=== PATIENT | female | born 1945 | race African-American/Black ===

== ENCOUNTER 2018-07-31 13:56 | Outpatient (CLI) | payer MEDICARE, MEDICAID | END 2018-07-31 13:57 | disposition home or self-care (01) | LOC: BICMAMMO 13:56 | PROVIDERS: ATTEND Family Medicine | DX: Z12.31 Encounter for screening mammogram for malignant neoplasm of breast (principal) | CPT/HCPCS: 77063; 77067 ==

== ENCOUNTER 2019-06-28 15:59 | Emergency (ER) | payer MEDICARE, MEDICAID ==
--- NOTE | 2019-06-28 17:06 | CT ---
CT OF BRAIN PERFORMED WITHOUT CONTRAST ENHANCEMENT: 06/28/19 HISTORY: Fall with head injury. COMPARISON: 10/29/04 study. There is generalized ventricular and sulcal prominence. There is no signs of intracerebral hemorrhage or extra-axial fluid collections. Mastoid air cells are clear. There is some thickening and ground g lass type opacity to the maxillary sinus region. 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 IMPRESSION: No acute intracranial abnormalities. POS: H
--- NOTE | 2019-06-28 17:11 | CT ---
CT Cervical Spine WO Con Indication: Fall one hour prior to arrival with neck pain COMPARISON: None. FINDINGS: Acute fracture/subluxation: None. Spinal alignment: There is some straightening of the normal cervical lordosis which may be positional or related to muscular spasm. Craniocervical junction: Within normal limits. Vertebral body heights: Maintained. Cervical spine degenerative change: There is mild disc degenerative disease at C6-7. There is mild mu ltilevel facet osteoarthritic change. Lung apices: Mild emphysema IMPRESSION: No acute osseous abnormality.
--- NOTE | 2019-06-28 17:15 | CT ---
CT OF FACIAL BONES PERFORMED WITHOUT CONTRAST ENHANCEMENT: 06/28/19 HISTORY: Patient fell and has facial injury. The bones show an overall ground glass opacity. 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 Nasal bone and zygomatic arches are intact. There is no air fluid levels present within the sinuses. The pterygoid processes are intact. No maxillary or orbital fractures are seen. There is motion artifact in the region of the mandible. This makes the mandible difficult to assess, particularly anteriorly. I do not see any definite signs of fracture. There is some undulation to the cortex of the right condyle; however, in reviewing the cervical spine images, there is no abnormalit y seen in this region and I believe it is all related to motion. IMPRESSION: No evidence of facial bone fracture. POS: [facility]
== END 2019-06-28 18:09 | disposition home or self-care (01) ==
LOC: ERS 15:59
DX: S00.83XA Contusion of other part of head, initial encounter (principal); G20 Parkinson's disease; F32.9 Major depressive disorder, single episode, unspecified; J45.909 Unspecified asthma, uncomplicated; I10 Essential (primary) hypertension; M19.90 Unspecified osteoarthritis, unspecified site; M06.9 Rheumatoid arthritis, unspecified; D50.9 Iron deficiency anemia, unspecified; W01.198A Fall on same level from slipping, tripping and stumbling with subsequent striking against other object, initial encounter
CPT/HCPCS: 36415; 70450; 70486; 72125; 84443

== ENCOUNTER 2019-08-13 12:10 | Outpatient (CLI) | payer MEDICARE, MEDICAID ==
--- NOTE | 2019-08-13 13:01 | RAD ---
EXAM: Esophagram HISTORY: Hiatal hernia, gastroesophageal reflux disease, cough, and weight loss COMPARISON: None FINDINGS: A double contrast barium swallow/esophagram was performed. Esophageal motility is delayed consistent with presbyesophagus. No mucosal lesions are seen in the esophagus. No extrinsic compression on the esophagus is seen. No hiatal hernia. Moderate contents are seen within the stomach secondary to recent oral intake. No gastroesophageal reflux. A 13 mm barium tablet was attempted to be administered, but the patient held the tablet in her mouth for prolonged period of time and eventually chewed the tablet. IMPRESSION: No significant abnormality other than presbyesophagus.
== END 2019-08-13 12:11 | disposition home or self-care (01) ==
LOC: RAD 12:10
PROVIDERS: ATTEND Physician Assistant Medical
DX: K44.9 Diaphragmatic hernia without obstruction or gangrene (principal); K21.9 Gastro-esophageal reflux disease without esophagitis; R05 Cough; R63.4 Abnormal weight loss; K22.8 Other specified diseases of esophagus
CPT/HCPCS: 74220

== ENCOUNTER 2019-08-20 10:43 | Outpatient (CLI) | payer MEDICARE, MEDICAID ==
--- NOTE | 2019-08-22 21:35 | RAD ---
Modified barium swallow with speech therapist: DATE: 08/20/2019 HISTORY: 73-year-old female with intellectual disability presents with gastroesophageal reflux disease without esophagitis, large hiatal hernia, weight loss, and cough. Dysphagia, unspecified. FINDINGS: Premature free spillage. There is adequate epiglottic inversion. No significant residue. Incidental c alculus. Difficulty in oral phase with tablet/pill. There is no video that shows the pleural actually being swallowed. Single episode of flash penetration with thin liquids. No aspiration. AP fr ontal projections demonstrate patulous, diffusely dilated distal esophagus and/or high-grade hiatal hernia, incompletely imaged. IMPRESSION: 1. Mild dysphagia. 2. Patulous esophagus, incompletely evaluated. This would be better evaluated with an esophagram.
== END 2019-08-20 10:44 | disposition home or self-care (01) ==
PROVIDERS: ATTEND Physician Assistant Medical
DX: I69.191 Dysphagia following nontraumatic intracerebral hemorrhage (principal); K21.9 Gastro-esophageal reflux disease without esophagitis; R05 Cough; K44.9 Diaphragmatic hernia without obstruction or gangrene; R63.4 Abnormal weight loss; F79 Unspecified intellectual disabilities
CPT/HCPCS: 74230

== ENCOUNTER 2019-10-28 07:25 | Outpatient (CLI) | payer MEDICARE, MEDICAID ==
--- NOTE | 2019-10-28 08:47 | CT ---
CT Abdomen Pelvis W Con: 10/28/2019 12:00 AM CLINICAL INFORMATION: Weight loss COMPARISON: None. TECHNIQUE: Multiple contiguous axial images were obtained and a CT of the abdomen and pelvis with IV contrast. Oral contrast was administered. Coronal and sagittal reformats were performed. FINDINGS: Lower Chest: within normal limits. Abdomen: Liver: within normal limits. Bile Ducts: Normal caliber. Gallbladder: Removed Pancreas: within normal limits. Spleen: within normal limits. Adrenals: within normal limits. Kidneys: Bilateral renal cysts measuring up to 1.9 cm in size. Nonobstructing left renal calcificatio n measuring 4 mm in size. Pelvis: Reproductive Organs: Status post hysterectomy Ureters: within normal limits. Bladder: within normal limits. Peritoneum: No ascites or free air, no fluid collection. Bowel: Normal caliber. Mesentery and Retroperitoneum: No enlarged mesenteric or retroperitoneal lymph nodes. Vessels: Normal. Abdominal Wall: within normal limits. Bones: Within normal limits IMPRESSION: 1. Bilateral renal cysts 2. Nonspecific left renal calcification
[2019-10-28] MEDS ORDERED: Iopamidol-370 76% 500 ML 1 ML ONE (13:11)
== END 2019-10-28 07:26 | disposition home or self-care (01) ==
LOC: BICCT 07:25
PROVIDERS: ATTEND Physician Assistant Medical
DX: R13.12 Dysphagia, oropharyngeal phase (principal); R63.4 Abnormal weight loss; N28.1 Cyst of kidney, acquired; N28.89 Other specified disorders of kidney and ureter
CPT/HCPCS: 74177; Q9967

== ENCOUNTER 2019-12-04 13:03 | Outpatient (CLI) | payer MEDICARE, MEDICAID ==
--- NOTE | 2019-12-04 14:17 | BD ---
EXAM: Bone densitometry using DEXA HISTORY: 74 yo female. Screening for postmenopausal osteoporosis FINDINGS: L1--bone mineral density 0.613 g/sq cm; T score -3.4 ; Z score -1.9 L2--bone mineral density 0.645 g/sq cm; T score -3.5 ; Z score -1.8 L3--bone mineral density 0.703 g/sq cm; T score -3.5 ; Z score -1.7 L4--bone mineral density 0.651 g/sq cm; T score -3.7 ; Z score -1.9 Total L1-L4--bone mineral density 0.654 g/sq cm; T score -3.6 ; Z score -1.9 Left femoral neck--bone mineral density0.479; T score -3.3 ; Z score -1.7 Total proximal left femur--bone mineral density 0.565; T score -3.1 ; Z score -1.7 IMPRESSION: Osteoporosis
--- NOTE | 2019-12-04 14:17 | MMO ---
Bilateral MAMMO Bilat Screen [facility]. CLINICAL HISTORY: Patient is 74 years old and is seen for screening. The patient has no family history of breast cancer. The patient has no personal history of cancer. VIEWS: The views performed were: bilateral craniocaudal with tomosynthesis and bilateral mediolateral oblique with tomosynthesis. FILMS COMPARED: The present examination has been compared to prior imaging studies performed at [facility] on 05/09/2016, 06/02/2017, 06/15/2017 and 07/31/2018. This study has been interpreted with the assistance of computer-aided detection. MAMMOGRAM FINDINGS: There are scattered fibroglandular densities. There are no suspicious masses, suspicious calcifications, or new areas of architectural distortion. IMPRESSION: THERE IS NO MAMMOGRAPHIC EVIDENCE OF MALIGNANCY. A ROUTINE FOLLOW-UP MAMMOGRAM IN 1 YEAR IS RECOMMENDED. THE RESULTS OF THIS EXAM WERE SENT TO THE PATIENT. ACR BI-RADS Category 1 - Negative MAMMOGRAPHY NOTE: 1. A negative mammogram report should not delay a biopsy if a dominant of clinically suspicious mass is present. 2. Approximately 10% to 15% of breast cancers are not detected by mammography. 3. Adenosis and dense breasts may obscure an underlying neoplasm. Reported by: CRISTOFER GUZMÁN MD Electonically Signed: [id number]
== END 2019-12-04 13:04 | disposition home or self-care (01) ==
LOC: BICMAMMO 13:03
PROVIDERS: ATTEND Family Medicine
DX: Z12.31 Encounter for screening mammogram for malignant neoplasm of breast (principal); Z13.820 Encounter for screening for osteoporosis; E55.9 Vitamin D deficiency, unspecified; R26.9 Unspecified abnormalities of gait and mobility; M81.0 Age-related osteoporosis without current pathological fracture
CPT/HCPCS: 77063; 77067; 77080

== ENCOUNTER 2020-03-07 21:46 | Emergency (ER) | payer MEDICARE, MEDICAID ==
--- NOTE | 2020-03-07 23:22 | RAD ---
4 VIEWS LEFT ELBOW: Date: 03/07/2020 COMPARISON: None. HISTORY: Fall, trauma, pain. FINDINGS: No elbow joint effusion, displaced fracture, or evidence of dislocation seen. IMPRESSION: No displaced fracture or evidence of dislocation. Follow-up in 7-10 days advised if symptoms persist. POS: [facility]
--- NOTE | 2020-03-07 23:23 | CT ---
HEAD CT WITHOUT CONTRAST: Date: 03/07/2020 HISTORY: Trauma. TECHNIQUE: Axial CT imaging at 5 mm intervals from the vertex to the skull base without contrast. FINDINGS: The imaged paranasal sinuses and mastoid air cells are well aerated. There is atherosclerotic calcifi cation of the cavernous carotid arteries. There is no intracranial hemorrhage, midline shift, mass effect, or ventricular enlargement. IMPRESSION: No intracranial hemorrhage or displaced calvarial fracture. POS: [facility]
== END 2020-03-07 23:41 | disposition home or self-care (01) ==
LOC: ERS 21:46
DX: S50.02XA Contusion of left elbow, initial encounter (principal); S00.03XA Contusion of scalp, initial encounter; D50.9 Iron deficiency anemia, unspecified; I10 Essential (primary) hypertension; M06.9 Rheumatoid arthritis, unspecified; G47.00 Insomnia, unspecified; F32.9 Major depressive disorder, single episode, unspecified; E55.9 Vitamin D deficiency, unspecified; E78.00 Pure hypercholesterolemia, unspecified; K21.9 Gastro-esophageal reflux disease without esophagitis; W01.0XXA Fall on same level from slipping, tripping and stumbling without subsequent striking against object, initial encounter
CPT/HCPCS: 70450; 93005

== ENCOUNTER 2021-02-12 16:03 | Emergency (ER) | payer MEDICARE, MEDICAID ==
[2021-02-12 16:40] LABS: #Basophils 0.1 thou/uL (0.0-0.2); #Eosinphils 0.2 thou/uL (0.0-0.7); #Lymphocytes 2.1 thou/uL (1.20-3.40); #Monocytes 0.5 thou/uL (0.11-0.59); #Neutrophils 2.2 thou/uL (1.40-6.50); %Basophils 1.4 % (0.0-1.0); %Eosinophils 3.9 % (0.0-10.0); %Lymphocytes 41.7 % (21.0-51.0); %Monocytes 9.2 % (0.0-10.0); %Neutrophils 43.7 % (42.0-75.0); Hemoglobin 11.6 g/dL (12.0-16.0); Mean Corpuscular HGB CONC 32.3 g/dL (32.0-36.0); Mean Corpuscular Hemoglobin 32.5 pg (27.0-31.0); Mean Platelet Volume 7.3 fL (7.4-10.4); Platelet Count 227 thou/uL (130-400); Red Blood Cell (RBC) Count 3.56 mill/uL (4.20-5.40)
[2021-02-12 17:03] LABS: ALT (SGPT) 21 U/L (8-55); AST (SGOT) 29 U/L (5-34); Alkaline Phosphatase 109 U/L (40-110); Anion Gap 13 mmol/L (10-20); BUN (Urea Nitrogen) 23 mg/dL (9.8-20.1); Bilirubin, Total 0.4 mg/dL (0.2-1.2); Calc. Creatinine Clearance 0 mL/min (70-130); Calcium 8.7 mg/dL (7.8-10.44); Carbon Dioxide 24 mmol/L (23-31); Chloride 103 mmol/L (98-107); Globulin 4.4 g/dL (2.4-3.5); Glucose 88 mg/dL (83-110); Lipase 52 U/L (8-78); Protein, Total 8.4 g/dL (5.8-8.1); Sodium 136 mmol/L (136-145)
[2021-02-12 19:11] LABS: Bilirubin Negative (Negative); Blood, Urine Negative (Negative); Clarity Clear (Clear); Glucose, Urine (Dipstick) Normal (Negative); Ketone, Urine Negative (Negative); Leukocyte Negative Leu/uL (Negative); Nitrite Negative (Negative); Protein, Urine (Dipstick) Negative (Neg-Trace); Specific Gravity, Urine 1.006 (1.002-1.036); Urobilinogen Normal mg/dL (Less than 2)
== END 2021-02-12 20:05 | disposition home or self-care (01) ==
LOC: ERS 16:03
DX: R10.31 Right lower quadrant pain (principal); R10.32 Left lower quadrant pain; E03.9 Hypothyroidism, unspecified; E78.5 Hyperlipidemia, unspecified; I10 Essential (primary) hypertension; G43.909 Migraine, unspecified, not intractable, without status migrainosus; Z79.82 Long term (current) use of aspirin; Z79.899 Other long term (current) drug therapy
CPT/HCPCS: 36415; 71045; 80053; 81003; 83690; 84484; 85025; 93005

== ENCOUNTER 2021-07-21 13:03 | Outpatient (CLI) | payer MEDICARE, MEDICAID | END 2021-07-21 13:04 | disposition home or self-care (01) | LOC: BICMAMMO 13:03 | PROVIDERS: ATTEND Family Medicine | DX: Z12.31 Encounter for screening mammogram for malignant neoplasm of breast (principal) | CPT/HCPCS: 77063; 77067 ==

== ENCOUNTER 2021-11-30 14:23 | Outpatient (CLI) | payer MEDICARE, MEDICAID | END 2021-11-30 14:24 | disposition home or self-care (01) | LOC: BICRAD 14:23 | PROVIDERS: ATTEND Family Medicine | DX: R05.9 Cough, unspecified (principal); Q79.1 Other congenital malformations of diaphragm; J98.11 Atelectasis | CPT/HCPCS: 71046 ==

== ENCOUNTER 2022-09-01 23:12 | Emergency (ER) | payer MEDICARE, MEDICAID ==
[2022-09-02 01:10] LABS: Hemoglobin 12.3 g/dL (12.0-16.0); Mean Platelet Volume 9.4 fL (7.4-10.4); Platelet Count 132 10x3/uL (130-400); RBC Distribution Width 12.5 % (11.5-14.5); Red Blood Cell (RBC) Count 3.51 mill/uL (4.20-5.40); White Blood Cell (WBC) Count 7.3 10x3/uL (4.8-10.8)
[2022-09-02 01:16] LABS: PTT 26.1 sec (22.9-36.1); Prothrombin Time 13.7 sec (12.0-14.7)
[2022-09-02 01:33] LABS: ALT (SGPT) 21 U/L (8-55); AST (SGOT) 31 U/L (5-34); Albumin 4.2 g/dL (3.4-4.8); Alkaline Phosphatase 84 U/L (40-110); Anion Gap 15 mmol/L (10-20); BUN (Urea Nitrogen) 19 mg/dL (9.8-20.1); Bilirubin, Total 0.4 mg/dL (0.2-1.2); CK (CPK) 181 U/L (29-168); Calc. Creatinine Clearance 0 mL/min (70-130); Calcium 9.4 mg/dL (7.8-10.44); Carbon Dioxide 24 mmol/L (23-31); Chloride 102 mmol/L (98-107); Estimated GFR 66; Glucose 99 mg/dL (83-110); Protein, Total 9.2 g/dL (5.8-8.1); Sodium 138 mmol/L (136-145)
[2022-09-02 01:54] LABS: Band 3 % (5-11); Burr Cells SLIGHT = 2-5 cells (100X) (0-1/hpf); Lymphocytes 17 % (21-51); MDiff Complete? YES; Macrocytosis SLIGHT = 6-15 cells (100X) (0-5/hpf); Monocytes 8 % (0-10); Neutrophil 72 % (42-75); Ovalocytes SLIGHT = 2-5 cells (100X) (0-1/hpf); Platelet Morphology Comment PLT clumps seen-ADEQ; Target Cells SLIGHT = 2-5 cells (100X) (0-1/hpf)
== END 2022-09-02 01:23 | disposition home or self-care (01) ==
LOC: ERS 23:12
DX: S09.90XA Unspecified injury of head, initial encounter (principal); I10 Essential (primary) hypertension; E78.00 Pure hypercholesterolemia, unspecified; K21.9 Gastro-esophageal reflux disease without esophagitis; W19.XXXA Unspecified fall, initial encounter
CPT/HCPCS: 36415; 70450; 72125; 72170; 80053; 82550; 85025; 85610; 85730; 86850; 86900; 86901; 93005

== ENCOUNTER 2022-10-23 11:44 | Emergency (ER) | payer MEDICARE, MEDICAID | END 2022-10-23 15:35 | disposition home or self-care (01) | LOC: ERS 11:44 | DX: S00.81XA Abrasion of other part of head, initial encounter (principal); I10 Essential (primary) hypertension; K21.9 Gastro-esophageal reflux disease without esophagitis; E78.00 Pure hypercholesterolemia, unspecified; W18.30XA Fall on same level, unspecified, initial encounter | CPT/HCPCS: 70450; 72125; 93005 ==

== ENCOUNTER 2023-09-25 11:44 | Emergency (ER) | payer MEDICARE, MEDICAID ==
[2023-09-25] MEDS ORDERED: levETIRAcetam 500 MG (5 mL) VIAL ONE ×2 (11:50→14:29)
[2023-09-25] MEDS ORDERED: Ketamine In 0.9 % NaCl 50 MG/5 ML SYRINGE ONE (11:51)
[2023-09-25] MEDS ORDERED: LORazepam 2 MG/ML SYR.(CARPUJECT) ONE (11:53)
[2023-09-25 12:08] LABS: #Monocytes 0.5 thou/uL (0.11-0.59); #Neutrophils 8.1 thou/uL (1.40-6.50); %Basophils 0.1 % (0.0-1.0); %Lymphocytes 7.2 % (21.0-51.0); %Monocytes 5.4 % (0.0-10.0); Hematocrit 39.6 % (36.0-47.0); Hemoglobin 13.1 g/dL (12.0-16.0); Mean Corpuscular HGB CONC 33.1 g/dL (32.0-36.0); Mean Corpuscular Hemoglobin 32.6 pg (27.0-31.0); Mean Corpuscular Volume 98.5 fl (78.0-98.0); Mean Platelet Volume 10.1 fL (7.4-10.4); Platelet Count 283 10x3/uL (130-400); RBC Distribution Width 15.1 % (11.5-14.5); Red Blood Cell (RBC) Count 4.02 mill/uL (4.20-5.40); White Blood Cell (WBC) Count 9.4 10x3/uL (4.8-10.8)
[2023-09-25] MEDS ORDERED: NOREPINEPHRINE 8 MG/250 ML-D5W 250 ML ONE (12:10)
[2023-09-25] MEDS ORDERED: Fentanyl CADD 100 ML IV SCH (12:15)
[2023-09-25 12:22] LABS: INR-International Normal Ratio 1.1; Prothrombin Time 14.5 sec (12.0-14.7)
[2023-09-25 12:24] LABS: Bilirubin Negative (Negative); Blood, Urine Negative (Negative); Glucose, Urine (Dipstick) Negative (Negative); Ketone, Urine Negative (Negative); Leukocyte Negative (Negative); Nitrite Negative (Negative); Protein, Urine (Dipstick) 100 mg/dL (Neg-Trace); Urobilinogen 0.2 mg/dL (Less than 2); pH, Urine 5.5 (5.0-9.0)
[2023-09-25 12:28] LABS: Bacteria/HPF 4+ HPF (None Seen); CAUTI Indications for Culture Alt mental st,lethar; Clarity Hazy (Clear); RBC/HPF 0-3 HPF (0-3); Specific Gravity, Urine 1.022 (1.002-1.036); Squamous Epithelial 0-3 HPF (0-3); WBC/HPF 0-3 HPF (0-3)
[2023-09-25] MEDS ORDERED: Cefepime 2 GM VIAL ONE (12:28)
[2023-09-25] MEDS ORDERED: Vancomycin 1 GM/200 ML (FROZEN) BAG ONE (12:28)
[2023-09-25] MEDS ORDERED: Sodium Chloride 0.9% 100 ML ONE (12:28)
[2023-09-25] MEDS ORDERED: Propofol 1,000 MG/100 ML VIAL IV ONE ×2 (12:28→15:33)
[2023-09-25 12:29] LABS: Urine Culture Reflex No No
[2023-09-25 12:32] LABS: ALT (SGPT) 57 U/L (8-55); AST (SGOT) 74 U/L (5-34); Albumin 4.3 g/dL (3.4-4.8); Alkaline Phosphatase 72 U/L (40-110); Anion Gap 26 mmol/L (10-20); BUN (Urea Nitrogen) 44 mg/dL (9.8-20.1); Bilirubin, Total 0.6 mg/dL (0.2-1.2); Calc. Creatinine Clearance 0 mL/min (70-130); Calcium 9.6 mg/dL (7.8-10.44); Carbon Dioxide 16 mmol/L (23-31); Chloride 107 mmol/L (98-107); Estimated GFR 25; Globulin 5.6 g/dL (2.4-3.5); Glucose 130 mg/dL (83-110); Potassium 5.2 mmol/L (3.5-5.1); Protein, Total 9.9 g/dL (5.8-8.1); Sodium 144 mmol/L (136-145)
[2023-09-25 12:34] LABS: Amphetamine Not Detected (NotDetected); Barbiturates Screen Not Detected (NotDetected); Benzodiazepine Screen Not Detected (NotDetected); Cocaine Metabolite Screen Not Detected (NotDetected); Methadone Not Detected (NotDetected); Methamphetamine Not Detected (NotDetected); Opiate Screen Not Detected (NotDetected); Oxycodone Screen Not Detected (NotDetected); Phencyclidine (PCP) Not Detected (NotDetected); THC/Cannabinoid Screen Not Detected (NotDetected); Tricyclic Screen Not Detected (NotDetected)
[2023-09-25 12:52] LABS: Acetaminophen Less than 10 mcg/mL (10.0-30.0); Alcohol Less than 10.0 mg/dL (Less than 10); Salicylate Less than 8.0 mg/dL (15.0-30.0)
[2023-09-25 12:53] LABS: Troponin I 0.573 ng/mL (< 0.028)
[2023-09-25 12:56] LABS: Actual Bicarbonate (HCO3a) 15.4 mEq/L (22-28); Base Excess (BEa) -7.2 mEq/L (-2.0 to +3.0); Calcium, Ionized (arterial) 1.11 mmol/L (1.12-1.30); Carboxyhemoglobin (COHb) 0.3 gm% (0.0-3.0); Hematocrit-ABG 34 % (36.0-47.0); Hemoglobin (Hb) 11.7 g/dL (12.0-16.0); O2 Tension (PaO2), arterial 429.4 mmHg (> 70.0); Potassium - ABG Lab 4.11 mmol/L (3.70-5.30); pH, Arterial 7.431 (7.35-7.45)
[2023-09-25 12:58] LABS: CO2 Tension 23.7 mmHg (35.0-45.0)
[2023-09-25 12:59] LABS: ALV-art Gradient 253.975 mmHg (0-20); Puncture Site Left Femoral
[2023-09-25 13:05] LABS: Lipase 32 U/L (8-78); Magnesium 2.2 mg/dL (1.6-2.6)
[2023-09-25] MEDS ORDERED: Aspirin 300 MG Suppository ONE (13:24)
[2023-09-25 13:42] LABS: SARS-CoV-2 NAA Rapid Test Not Detected (NotDetected)
[2023-09-25] MEDS ORDERED: PROPOFOL 0 ML ONE (15:32)
== END 2023-09-25 15:43 | disposition short-term general hospital (02) ==
LOC: ERS 11:44
DX: G40.901 Epilepsy, unspecified, not intractable, with status epilepticus (principal); A41.9 Sepsis, unspecified organism; R65.21 Severe sepsis with septic shock; J96.00 Acute respiratory failure, unspecified whether with hypoxia or hypercapnia; I10 Essential (primary) hypertension
CPT/HCPCS: 0240U; 70450; 71045; 80053; 80306; 80307; 81001; 82805; 83605; 83690; 83735; 83880; 84146; 84484; 85025; 85610; 87040; 87077; 87086; 87149 ×2; 87186; 93005; 94002; J1953; J2060; J3010; J3370; 36415; 36556; 51702; 96361; 96365; 96374; 96375; 96376; J0692; J2704; J3490